=== PATIENT | male | born 1950 | race Two or more races ===

== ENCOUNTER 2016-11-01 15:43 | Emergency (ER) | payer MEDICARE, MEDICAID ==
[~2016-11-01] VITALS: Ht 167.6 cm; Wt 98.9 kg
[2016-11-01 15:46] VITALS: BP 127/87
--- NOTE | 2016-11-01 16:36 | NUR ---
BRIDGE BUILDER AT BEDSIDE
== END 2016-11-01 17:35 | disposition home or self-care (01) ==
LOC: ER 15:44
DX: L30.9 Dermatitis, unspecified (principal); E78.00 Pure hypercholesterolemia, unspecified; M25.511 Pain in right shoulder; F17.200 Nicotine dependence, unspecified, uncomplicated; E78.5 Hyperlipidemia, unspecified
CPT/HCPCS: 71010-TC; 93971-TC; A4606; Z7610